=== PATIENT | female | born 1965 | race Caucasian/White ===

== ENCOUNTER → 2016-06-14 | Outpatient (CLI) | payer BC ==
--- NOTE | 2016-06-14 11:21 | Diagnostic Imaging Report ---
PROCEDURE: MRI right joint upper extremity without contrast. INDICATION: Elbow pain. TECHNIQUE: Multiple imaging planes and sequences through the right elbow are performed. AVAILABLE COMPARISONS: None. FINDINGS: There is no elbow joint effusion. No osteochondral lesion is seen. The bone marrow does not show any significant abnormality. No mass is identified. The medial and lateral ligaments are within normal limits. IMPRESSION: 1. Negative MRI of the right elbow. Dictated by: Dictated on workstation # [id number]
--- NOTE | 2016-06-14 11:33 | Diagnostic Imaging Report ---
PROCEDURE: MRI right joint upper extremity without contrast. TECHNIQUE: Multiplanar, multisequence non contrast-enhanced MRI of the right shoulder was accomplished. INDICATION: Right shoulder pain. FINDINGS: The bicipital tendon is in normal position within the groove. Labrum is intact. AC joint shows no significant abnormality. The inferior glenohumeral ligament is negative. There is no joint effusion. Tendinosis of the rotator cuff tendon at the 11:00 o'clock position is seen with no definite tear. The cuff is not retracted. There is no significant joint effusion. There is no denervation edema or focal muscle atrophy. No mass is identified. No significant bone marrow lesion is seen. IMPRESSION: Rotator cuff tendinosis, otherwise negative study. Dictated by: Dictated on workstation # [id number]
--- NOTE | 2016-06-14 12:01 | Diagnostic Imaging Report ---
PROCEDURE: MRI right upper extremity without contrast. INDICATION: Right arm pain. Multiple imaging planes and sequences of the right humerus are performed. COMPARISON: None. The humerus shows normal bone marrow signal. There is no myositis or mass demonstrated. No focal or diffuse muscle atrophy is identified. IMPRESSION: 1. Negative MRI of the right proximal arm. Dictated by: Dictated on workstation # [id number]
== END ==
LOC: RAD 08:19
PROVIDERS: ATTEND Family Medicine
DX: E88.1 Lipodystrophy, not elsewhere classified (principal); M25.521 Pain in right elbow; M25.511 Pain in right shoulder
CPT/HCPCS: 73218; 73221